=== PATIENT | male | born 1990 | race Caucasian/White ===

== ENCOUNTER 2023-07-11 09:36 | Emergency (ER) | payer OTHER, BC, SELFPAY ==
[2023-07-11] VITALS (12 sets, daily range): BP systolic 95–161; BP diastolic 59–100; PULSE 83–97; RESP 16–18; TEMP 36.7; O2SAT 97–99; BMI 30.7
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
--- NOTE | 2023-07-11 10:03 | XR_ITS ---
Patient: DEWAYNE STREETER Facility:?[facility] Patient ID:?[id number] Site Patient ID:?[id number]. Site :?[id number] Study:?XRay-Extremity Left WRIST 3 VIEWS-07/11/2023 10:42:12 AM Ordering Physician:CHANTELL Final Report: Indication: Injury and pain Technique: Left wrist 3 view Comparison: None Findings: Bones: Alignment is normal. No fractures or bone lesions. Joint spaces: Unremarkable. Soft tissues: Unremarkable. Impression: No sign of acute injury in the left wrist. Dictated by Sorin Vela MD @ 07/11/2023 10:54:14 AM Signed by:?Sorin Vela MD @07/11/2023 10:54:14 AM (Electronic Signature)
[2023-07-11] MEDS: IBUPROFEN 200 MG TABLET 600 MG PO (10:32)
== END 2023-07-11 12:25 | disposition home or self-care (01) ==
PROVIDERS: Emergency Provider Emergency Medicine; PCP Family Medicine
DX: S63.502A Unspecified sprain of left wrist, initial encounter (principal); S80.02XA Contusion of left knee, initial encounter; V43.52XA Car driver injured in collision with other type car in traffic accident, initial encounter
CPT/HCPCS: 73110; 73562; 99283; 99284; 99291; A9270; G0390